=== PATIENT | female | born 1965 | race Caucasian/White ===

== ENCOUNTER → 2018-08-10 | Outpatient (CLI) | payer OTHER ==
[~2018-08-10] MED LIST: LORTAB 5/500 501 TAB PO; NORCO 325 MG-51 TAB PO; PROTONIX 40MG T40 MG PO; ZOFRAN 4MG T4 MG/TAB PO; ZOFRAN ODT4 MG PO
== END ==
LOC: COL.RAD 07:30
DX: R10.9 Unspecified abdominal pain (principal); R11.2 Nausea with vomiting, unspecified
CPT/HCPCS: A9541

== ENCOUNTER → 2018-08-21 | Outpatient (CLI) | payer OTHER ==
[~2018-08-21] VITALS: Ht 170.2 cm; Wt 71.0 kg
[2018-08-21] VITALS (12 sets, daily range): BP systolic 107–138; BP diastolic 60–86; PULSE 70–82
[~2018-08-21] MED LIST changes: +DESYREL 50MG50 MG PO; +MACROBID 1100 MG/CAP PO; +NEURONTIN300 MG/CAP PO
[2018-08-21 09:46] LABS: INR 0.9 (0.8-3.0); PROTHROMBIN TIME 10.6 SECONDS (9.7-12.8)
== END ==
LOC: COL.RAD 08-13 07:00
PROVIDERS: Physician Assistant
DX: R94.5 Abnormal results of liver function studies (principal); R11.2 Nausea with vomiting, unspecified; R10.9 Unspecified abdominal pain

== ENCOUNTER 2018-08-23 16:48 | Emergency (ER) | payer OTHER ==
[~2018-08-23] VITALS: Ht 170.2 cm; Wt 72.7 kg
[~2018-08-23 16:48] MED LIST changes: -MACROBID 1100 MG/CAP PO
[2018-08-23 16:52] VITALS: TEMP 97.9
[2018-08-23 17:16] LABS: BASO % 0.4 % (0.0-2.0); EOS # 0.2 (0.0-0.7); EOS % 2.4 % (0-4.0); GRAN # 5.1 (1.4-6.5); GRAN % 60.8 % (42.2-75.2); HEMATOCRIT 41.5 % (37.0-47.0); HEMOGLOBIN 13.8 g/dl (12.5-16.0); LYMPH # 2.5 (1.2-3.4); LYMPH % 29.5 % (20.0-51.0); MEAN CELL VOLUME 93 fl (80.0-100.0); MEAN CORPUSCULAR HEMOGLOBIN 31 pg (27.0-31.0); MEAN CORPUSCULAR HGB CONC 33 g/dl (33.0-37.0); MEAN PLATELET VOLUME 10.5 fl (7.4-10.4); MONO # 0.6 (0.1-0.6); MONO % 6.5 % (1.7-9.3); PLATELET COUNT 197 K/mm3 (130-400); RED BLOOD COUNT 4.46 M/mm3 (4.10-5.30); REDCELL DISTRIBUTION WIDTH-CV 11.7 % (11.5-14.5)
[2018-08-23 17:27] LABS: ALBUMIN 4.1 gm/dL (3.5-5.0); BILIRUBIN,TOTAL 0.2 mg/dL (0.0-1.0); CALCIUM 9.7 mg/dL (8.4-10.2); CREATININE, serum 0.87 mg/dL (0.52-1.25); POTASSIUM 4.1 mmol/L (3.4-5.0); TOTAL PROTEIN 7.2 gm/dL (6.4-8.2)
[2018-08-23 17:53] LABS: COLLECTION METHOD CLEAN CATCH
[2018-08-23 18:00] LABS: MUCOUS Present /lpf; PH 5 (5-8); SQUAMOUS EPITHELIAL 0-2 /hpf; URINE APPEARANCE Clear; URINE BACTERIA None Seen /hpf; URINE BILIRUBIN Negative (NEGATIVE); URINE BLOOD 1+ (NEGATIVE); URINE COLOR Straw; URINE GLUCOSE Negative (NEGATIVE); URINE KETONE Negative (NEGATIVE); URINE LEUKOCYTE ESTERASE 3+ (NEGATIVE); URINE NITRATE Negative (NEGATIVE); URINE PROTEIN(semi-quant) Negative (NEGATIVE); URINE UROBILINOGEN Negative (NEGATIVE)
[2018-08-23] MEDS ORDERED: MACROBID 1100 MG/CAP PO (18:13)
[2018-08-23 20:02] VITALS: BP 135/88; PULSE 72
== END 2018-08-23 20:03 | disposition home or self-care (01) ==
LOC: COL.ER 16:48
PROVIDERS: Emergency Medicine
DX: N39.0 Urinary tract infection, site not specified (principal); K58.9 Irritable bowel syndrome, unspecified; Z90.49 Acquired absence of other specified parts of digestive tract; Z90.89 Acquired absence of other organs; Z90.710 Acquired absence of both cervix and uterus
CPT/HCPCS: C9113; J2270; J7030; Q9967

== ENCOUNTER 2023-12-07 13:16 | Emergency (ER) | payer OTHER ==
[~2023-12-07] VITALS: Ht 170.2 cm; Wt 77.3 kg
[~2023-12-07 13:16] MED LIST changes: +AMITRIPTYLINE H10 M1 PO; +COZAAR 50MG50 MG/TAB PO; +MACROBID 1100 MG/CAP PO; +MASON NATURAL2000 IU PO; +TOPROL XL 50MG50 MG PO; +ZANAFLEX CAPSULE2 MG PO; +ZANAFLEX2 MG PO
[2023-12-07] MEDS ORDERED: TESSALON PERLE200 MG PO (15:37)
[2023-12-07 15:53] VITALS: BP 128/83; PULSE 80; TEMP 97.8
== END 2023-12-07 15:53 | disposition home or self-care (01) ==
LOC: COL.ER 13:16
DX: J10.1 Influenza due to other identified influenza virus with other respiratory manifestations (principal); Z91.040 Latex allergy status